=== PATIENT | male | born 1930 | race Caucasian/White ===

== ENCOUNTER → 2017-09-25 | Outpatient (CLI) | payer OTHER ==
[~2017-09-25] MED LIST: AMARYL4 MG PO; CELLCEPT 250 M250 MG PO; CELLCEPT500 MG PO; DOXAZOSIN MESYLA2 MG PO; LEVEMIR SUBQ; LIDODERM1 EACH TRANSDERM; LISINOPRIL5 MG PO; MINIPRESS2 MG PO; NORCO 5-325 TA1 EACH PO; NOVOLIN N100 UNIT/1 SUBQ; PRAVACHOL40 MG PO; SIMVASTATIN
== END ==
LOC: M.ULTRA 10:00
DX: I73.89 Other specified peripheral vascular diseases (principal); L97.528 Non-pressure chronic ulcer of other part of left foot with other specified severity; I77.1 Stricture of artery

== ENCOUNTER → 2017-09-25 | Outpatient (CLI) | payer OTHER | LOC: M.WC 02:12 | DX: E11.622 Type 2 diabetes mellitus with other skin ulcer (principal); I70.245 Atherosclerosis of native arteries of left leg with ulceration of other part of foot; L97.521 Non-pressure chronic ulcer of other part of left foot limited to breakdown of skin; E11.621 Type 2 diabetes mellitus with foot ulcer; L97.821 Non-pressure chronic ulcer of other part of left lower leg limited to breakdown of skin; E11.65 Type 2 diabetes mellitus with hyperglycemia; I10 Essential (primary) hypertension; E78.2 Mixed hyperlipidemia; M19.90 Unspecified osteoarthritis, unspecified site; F03.90 Unspecified dementia, unspecified severity, without behavioral disturbance, psychotic disturbance, mood disturbance, and anxiety; Z87.891 Personal history of nicotine dependence; Z98.42 Cataract extraction status, left eye; Z98.41 Cataract extraction status, right eye; Z96.641 Presence of right artificial hip joint ==

== ENCOUNTER → 2017-10-03 | Outpatient (CLI) | payer OTHER | LOC: M.WC 11:00 | DX: E11.621 Type 2 diabetes mellitus with foot ulcer (principal); I70.245 Atherosclerosis of native arteries of left leg with ulceration of other part of foot; L97.521 Non-pressure chronic ulcer of other part of left foot limited to breakdown of skin; E11.622 Type 2 diabetes mellitus with other skin ulcer; L97.821 Non-pressure chronic ulcer of other part of left lower leg limited to breakdown of skin; E11.65 Type 2 diabetes mellitus with hyperglycemia; I10 Essential (primary) hypertension; E78.2 Mixed hyperlipidemia; M19.90 Unspecified osteoarthritis, unspecified site; F03.90 Unspecified dementia, unspecified severity, without behavioral disturbance, psychotic disturbance, mood disturbance, and anxiety; Z87.891 Personal history of nicotine dependence; Z98.42 Cataract extraction status, left eye; Z98.41 Cataract extraction status, right eye; Z96.641 Presence of right artificial hip joint ==

== ENCOUNTER → 2017-10-15 | Outpatient (CLI) | payer OTHER | LOC: M.WC 01:16 | DX: E11.622 Type 2 diabetes mellitus with other skin ulcer (principal); L97.821 Non-pressure chronic ulcer of other part of left lower leg limited to breakdown of skin; I70.248 Atherosclerosis of native arteries of left leg with ulceration of other part of lower leg; E11.621 Type 2 diabetes mellitus with foot ulcer; L97.521 Non-pressure chronic ulcer of other part of left foot limited to breakdown of skin; E11.65 Type 2 diabetes mellitus with hyperglycemia; I10 Essential (primary) hypertension; E78.2 Mixed hyperlipidemia; M19.90 Unspecified osteoarthritis, unspecified site; F03.90 Unspecified dementia, unspecified severity, without behavioral disturbance, psychotic disturbance, mood disturbance, and anxiety; Z87.891 Personal history of nicotine dependence; Z96.641 Presence of right artificial hip joint ==

== ENCOUNTER → 2017-11-05 | Outpatient (CLI) | payer OTHER | LOC: M.WC 01:40 | DX: E11.621 Type 2 diabetes mellitus with foot ulcer (principal); L97.521 Non-pressure chronic ulcer of other part of left foot limited to breakdown of skin; L97.821 Non-pressure chronic ulcer of other part of left lower leg limited to breakdown of skin; E11.622 Type 2 diabetes mellitus with other skin ulcer; I70.245 Atherosclerosis of native arteries of left leg with ulceration of other part of foot; I10 Essential (primary) hypertension; E78.2 Mixed hyperlipidemia; N40.1 Benign prostatic hyperplasia with lower urinary tract symptoms; F03.90 Unspecified dementia, unspecified severity, without behavioral disturbance, psychotic disturbance, mood disturbance, and anxiety; M19.90 Unspecified osteoarthritis, unspecified site; Z87.891 Personal history of nicotine dependence ==

== ENCOUNTER → 2017-11-19 | Outpatient (CLI) | payer OTHER | LOC: M.WC 03:26 | DX: E11.621 Type 2 diabetes mellitus with foot ulcer (principal); E11.622 Type 2 diabetes mellitus with other skin ulcer; I70.245 Atherosclerosis of native arteries of left leg with ulceration of other part of foot; I70.248 Atherosclerosis of native arteries of left leg with ulceration of other part of lower leg; L97.821 Non-pressure chronic ulcer of other part of left lower leg limited to breakdown of skin; L97.521 Non-pressure chronic ulcer of other part of left foot limited to breakdown of skin; I10 Essential (primary) hypertension; E78.2 Mixed hyperlipidemia; M19.90 Unspecified osteoarthritis, unspecified site; F03.90 Unspecified dementia, unspecified severity, without behavioral disturbance, psychotic disturbance, mood disturbance, and anxiety; Z68.24 Body mass index [BMI] 24.0-24.9, adult; Z87.891 Personal history of nicotine dependence; Z90.49 Acquired absence of other specified parts of digestive tract; Z96.641 Presence of right artificial hip joint; Z98.41 Cataract extraction status, right eye; Z98.42 Cataract extraction status, left eye ==

== ENCOUNTER → 2017-11-26 | Outpatient (CLI) | payer OTHER ==
[~2017-11-26] VITALS: Ht 180.3 cm; Wt 77.1 kg
[2017-11-26 11:11] LABS: HEMATOCRIT 46.7 % (42.0-52.0); HEMOGLOBIN 15.5 gm/dL (14.0-18.0); MCH 32.8 pg (26.0-34.0); MCHC 33.1 g/dL (28.0-37.0); MPV 8.8 fl. (7.2-11.1); RBC 4.72 mil/uL (4.50-6.00); RDW-CV 13.2 % (10.5-14.5); WBC 7.8 thou/uL (4.0-11.0)
[2017-11-26 11:18] VITALS: BP 124/56
[2017-11-26 11:19] LABS: CREATININE 1.7 mg/dL (0.6-1.3); POTASSIUM 4.6 mmol/L (3.5-5.1)
[2017-11-26 11:21] LABS: APTT 26.2 Seconds (25.0-31.3)
[2017-11-26 11:24] LABS: ALBUMIN 3.4 g/dL (3.4-5.0); TOTAL BILIRUBIN 0.4 mg/dL (<0.1-1.0); TOTAL PROTEIN 7.7 g/dL (6.4-8.2)
[2017-11-26 16:08] VITALS: BP 118/64
[2017-11-26 16:19] VITALS: BP 131/73
[2017-11-26 16:37] VITALS: BP 129/63
[2017-11-26 17:06] VITALS: BP 125/58
[2017-11-26 18:01] VITALS: BP 133/40
--- NOTE | 2017-12-06 14:18 | OP ---
[facility] [address] [place] [address] OPERATIVE REPORT Name: ENCISORYAN Room: [facility]#: [id number] Admission: 11/26/17 Attend Phys: Levon Wilcox Discharge: Date of : 30 Report #: [id number] THIS REPORT FOR: //name// CC: Ryan Perez DATE OF SERVICE: 11/26/2017 PREOPERATIVE DIAGNOSIS: Peripheral vascular disease with rest pain and left great toe ulcer. POSTOPERATIVE DIAGNOSIS: Peripheral vascular disease with rest pain and left great toe ulcer. SURGEON: Dave Perez DO TEMPER MILL ROLLER: None. PROCEDURES: 1. Ultrasound-guided access, right common femoral artery. 2. CO2 aortogram. 3. Left lower extremity arteriogram with CO2 and contrast, catheter position third order. 4. Atherectomy, left superficial femoral artery. 5. Angioplasty of the left superficial femoral artery with Bard [place] 3 x 150 mm angioplasty balloon. 6. Limited angiogram, right common femoral artery. 7. Angio-Seal closure, right common femoral artery. ESTIMATED BLOOD LOSS: Minimal. SPECIMEN: None. COMPLICATIONS: None. CONDITION: Stable. DISPOSITION: Home. INDICATIONS FOR THE PROCEDURE AND CONSENT: The patient is an 87-year-old male with rest pain of left lower extremity. He has a history of left superficial femoral artery stenting, attempted reopening by a vascular surgeon a couple of years ago without success. The patient developed a toe ulcer on reattempt, was discussed with the patient including retrograde tibial access. Risks and benefits of this were discussed with the patient, infection, bleeding, worsening renal insufficiency. The patient wished to proceed, was consented and [facility] [address] [facility] [place] [address] OPERATIVE REPORT Name: RYAN ENCISO Room: [facility]#: [id number] Admission: 11/26/17 Attend Phys: Levon Wilcox Discharge: Date of : 30 Report #: [id number] scheduled. Preoperative laboratory demonstrated elevated creatinine of 1.7, so CO2 angiography with minimal contrast dye using 20% contrast was planned in the immediate preoperative period. The patient was also administered additional fluid given the possible complexity of the case and need for additional contrast. PROCEDURE IN DETAIL: After timeout was performed, the patient was placed in supine position with sterile prep and drape of the anterior abdomen, bilateral groins, bilateral thighs. Ultrasound was utilized to identify the right common femoral artery, which was fairly heavily diseased with plaque. I accessed above this heavy plaque using Seldinger technique and a 6-Bolivian sheath. Glidewire Advantage and UF catheter were advanced into the infrarenal aorta and a CO2 aortogram was performed. This demonstrated the aorta to be widely patent. The left common iliac artery was mildly stenosed without significant flow limitation. Otherwise, the right common iliac, external, internal and left external and internal iliac arteries appeared widely patent without flow limitation or stenosis. I then advanced the Glidewire Advantage and UF catheter into the left external iliac artery under fluoroscopic guidance and a left lower extremity angiogram with CO2 was then performed. This demonstrated left common femoral artery to be patent. 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 At this junction, although it appeared to be through small collaterals and the patient did not appear to be having any symptoms, I opted not to use any additional CO2 for concern of gas embolism. I then converted to 20% contrast dye and initiated additional fluid management. The left lower extremity angiogram from this position again demonstrated the fistula, widely patent profunda artery with reconstitution below the knee through spiraling collaterals to the anterior tibial vessel. The posterior tibial and peroneal vessels were not well visualized, but did appear to possibly reconstitute distally, but appeared also very small, occluded the dominant vessel was the anterior tibial vessel. Because of the paucity of outflow, I determined at this point that retrograde tibial axis was not appropriate as any damage to the single outflow vessel could lead to an emergent ischemic situation. I did consider at this point stopping the procedure with a plan for fem-tibial bypass and performed additional angled views of the femoral vessel. This did demonstrate the proximal superficial femoral artery to be patent with a top cap and I determined that the fistula was not from this area of the superficial femoral artery, also interrogated the patient regarding symptoms of heart failure and history of congestive heart failure and reviewed this chart. There was no history of this and did not feel strongly that [place] [address] OPERATIVE REPORT Name: RYAN ENCISO Room: [facility]#: [id number] Admission: 11/26/17 Attend Phys: Levon Wilcox Discharge: Date of : 30 Report #: [id number] treatment at this point. I then decided to proceed with attempt at reopening of his SFA occlusion. I systemically heparinized the patient with 6000 units of heparin with intention to treat and obtain an up and over 6-Bolivian sheath. Glidewire Advantage and Seeker catheter were placed into the proximal superficial artery. This was exchanged for 0.018 Glidewire Advantage and the Usher catheter. The Usher catheter was positioned at the top cap and the Crosser atherectomy device obtained. This was then activated and advanced through the top cap and into the superficial femoral artery without difficulty. This passed easily through the SFA and proximal SFA stent and down into the popliteal vessel. I then advanced the Usher catheter distally as well; however, I did not wish to pass distally and at the junction of 2 adjoining stents, did not appear to want to pass. I then exchanged for 0.018 Glidewire Advantage and Seeker catheter. I was unable to pass the Seeker catheter either and then obtained a 3 mm angioplasty balloon to try and open the space between the 2 stents. I was able to pass the balloon approximately 1-2 cm beyond the junction and angioplasty and I reobtained the Seeker catheter, was still unable to pass the Seeker catheter distally. I exchanged for the 0.035 Glidewire Advantage and attempted to take a different path even retracting all the way above the stents and even back to the top cap and attempting a different subintimal plane. None of this proved useful and was really not able to get a Seeker catheter beyond the junction of the 2 superficial femoral artery and popliteal artery stents. I suspected that my wire was passing from the true luminal side of the superficial femoral, proximal stent and then was passing between the stents to extra stent pathway. One image demonstrated a possible distal entry into the femoral vein. When the catheter was retracted and angiography performed, this did not demonstrate any connection or extravasation of contrast. Ultimately, after multiple attempts to reposition into a different plane to get distally into the distal popliteal artery, I was really not able to achieve this. At this point, determined that his only option was a fem-tibial bypass or nontreatment at this time. I did discuss this with the awake patient to some degree, although he was under sedation. He was quite alert and awake and wanted to consider bypass. I then retracted the sheath into the right external iliac artery and angiogram was performed. This demonstrated appropriate vessel for Angio-Seal closure and 6-Bolivian Angio-Seal was selected and deployed in standard fashion. The patient tolerated the procedure well. All lap, needle and instrument counts were correct. Pressure was held for hemostasis for additional 2 minutes. The patient was transferred to recovery in stable condition. <ELECTRONICALLY SIGNED> By: Dave Perez DO 12/06/17 1418 1841 1916Dave [email or web address] DO /nt
== END | disposition home or self-care (01) ==
LOC: M.INT 11-11 13:30
PROVIDERS: Surgery
DX: I70.222 Atherosclerosis of native arteries of extremities with rest pain, left leg (principal); L97.529 Non-pressure chronic ulcer of other part of left foot with unspecified severity; I10 Essential (primary) hypertension; E11.9 Type 2 diabetes mellitus without complications; Z87.891 Personal history of nicotine dependence; Z88.0 Allergy status to penicillin; Z88.8 Allergy status to other drugs, medicaments and biological substances; Z79.4 Long term (current) use of insulin; Z79.899 Other long term (current) drug therapy; Z96.641 Presence of right artificial hip joint; Z90.49 Acquired absence of other specified parts of digestive tract; Z79.01 Long term (current) use of anticoagulants

== ENCOUNTER → 2017-12-10 | Outpatient (CLI) | payer OTHER | LOC: M.WC 12-03 01:54 | DX: E11.621 Type 2 diabetes mellitus with foot ulcer (principal); L97.521 Non-pressure chronic ulcer of other part of left foot limited to breakdown of skin; I70.245 Atherosclerosis of native arteries of left leg with ulceration of other part of foot; I10 Essential (primary) hypertension; E78.2 Mixed hyperlipidemia; N40.1 Benign prostatic hyperplasia with lower urinary tract symptoms; F03.90 Unspecified dementia, unspecified severity, without behavioral disturbance, psychotic disturbance, mood disturbance, and anxiety; Z68.24 Body mass index [BMI] 24.0-24.9, adult; M19.90 Unspecified osteoarthritis, unspecified site; Z87.891 Personal history of nicotine dependence ==

== ENCOUNTER → 2017-12-24 | Outpatient (CLI) | payer OTHER | LOC: M.WC 00:54 | DX: E11.621 Type 2 diabetes mellitus with foot ulcer (principal); L97.521 Non-pressure chronic ulcer of other part of left foot limited to breakdown of skin; I70.245 Atherosclerosis of native arteries of left leg with ulceration of other part of foot; E11.622 Type 2 diabetes mellitus with other skin ulcer; L97.821 Non-pressure chronic ulcer of other part of left lower leg limited to breakdown of skin; E78.2 Mixed hyperlipidemia; I10 Essential (primary) hypertension; N40.1 Benign prostatic hyperplasia with lower urinary tract symptoms; F03.90 Unspecified dementia, unspecified severity, without behavioral disturbance, psychotic disturbance, mood disturbance, and anxiety; Z68.24 Body mass index [BMI] 24.0-24.9, adult; M19.90 Unspecified osteoarthritis, unspecified site; Z87.891 Personal history of nicotine dependence ==

== ENCOUNTER → 2017-12-31 | Outpatient (CLI) | payer OTHER | LOC: M.WC 02:48 | DX: E11.621 Type 2 diabetes mellitus with foot ulcer (principal); L97.521 Non-pressure chronic ulcer of other part of left foot limited to breakdown of skin; I70.245 Atherosclerosis of native arteries of left leg with ulceration of other part of foot; I10 Essential (primary) hypertension; E78.2 Mixed hyperlipidemia; N40.1 Benign prostatic hyperplasia with lower urinary tract symptoms; F03.90 Unspecified dementia, unspecified severity, without behavioral disturbance, psychotic disturbance, mood disturbance, and anxiety; M19.90 Unspecified osteoarthritis, unspecified site; Z68.24 Body mass index [BMI] 24.0-24.9, adult; Z87.891 Personal history of nicotine dependence ==

== ENCOUNTER → 2018-01-14 | Outpatient (CLI) | payer OTHER | LOC: M.WC 04:29 | DX: E11.621 Type 2 diabetes mellitus with foot ulcer (principal); I70.245 Atherosclerosis of native arteries of left leg with ulceration of other part of foot; L97.521 Non-pressure chronic ulcer of other part of left foot limited to breakdown of skin; I10 Essential (primary) hypertension; E78.2 Mixed hyperlipidemia; N40.1 Benign prostatic hyperplasia with lower urinary tract symptoms; M19.90 Unspecified osteoarthritis, unspecified site; F03.90 Unspecified dementia, unspecified severity, without behavioral disturbance, psychotic disturbance, mood disturbance, and anxiety; Z87.891 Personal history of nicotine dependence; Z96.641 Presence of right artificial hip joint ==

== ENCOUNTER → 2018-01-27 | Outpatient (CLI) | payer OTHER | LOC: M.WC 08:40 | DX: I70.245 Atherosclerosis of native arteries of left leg with ulceration of other part of foot (principal); L97.521 Non-pressure chronic ulcer of other part of left foot limited to breakdown of skin; E11.65 Type 2 diabetes mellitus with hyperglycemia; I10 Essential (primary) hypertension; E78.2 Mixed hyperlipidemia; N40.1 Benign prostatic hyperplasia with lower urinary tract symptoms; F03.90 Unspecified dementia, unspecified severity, without behavioral disturbance, psychotic disturbance, mood disturbance, and anxiety; M19.90 Unspecified osteoarthritis, unspecified site; Z87.891 Personal history of nicotine dependence; Z68.24 Body mass index [BMI] 24.0-24.9, adult; Z96.641 Presence of right artificial hip joint; Z98.42 Cataract extraction status, left eye; Z98.41 Cataract extraction status, right eye ==

== ENCOUNTER 2018-05-19 10:14 | Emergency (ER) | payer OTHER ==
[~2018-05-19] VITALS: Ht 180.3 cm; Wt 78.7 kg
[~2018-05-19 10:14] MED LIST changes: -CELLCEPT 250 M250 MG PO; -LIDODERM1 EACH TRANSDERM; -MINIPRESS2 MG PO
[2018-05-19 10:42] LABS: ABSOLUTE BASOPHILS 0.1 thou/uL (0.0-0.2); ABSOLUTE EOSINOPHILS 0.1 thou/uL (0.0-0.7); ABSOLUTE LYMPHOCYTES 1.3 thou/uL (0.8-5.3); ABSOLUTE MONOCYTES 0.7 thou/uL (0.0-1.2); ABSOLUTE NEUTROPHILS 5.3 thou/uL (1.6-8.1); BASOPHILS 1.3 %; EOSINOPHILS 1.5 %; HEMATOCRIT 42.5 % (42.0-52.0); LYMPHOCYTES 17.8 %; MCH 31.9 pg (26.0-34.0); MCV 96.6 fL (80.0-100.0); MONOCYTES 8.9 %; MPV 9.1 fl. (7.2-11.1); NUCLEATED RBCS 0 /100WBC; PLATELET COUNT* 210 thou/uL (150-400); POLYS 70.5 %; RDW-CV 13.7 % (10.5-14.5); WBC 7.6 thou/uL (4.0-11.0)
[2018-05-19 10:58] LABS: ANION GAP 7 mmol/L (7-16); BUN 29 mg/dL (7-18); CALCIUM 8.2 mg/dL (8.5-10.1); CHLORIDE 103 mmol/L (98-107); CO2 25 mmol/L (21-32); CREATININE 1.8 mg/dL (0.6-1.3); GLUCOSE 206 mg/dL (70-99); POTASSIUM 4.2 mmol/L (3.5-5.1); SODIUM 135 mmol/L (136-145)
[2018-05-19 11:06] LABS: ALBUMIN 2.8 g/dL (3.4-5.0); ALKALINE PHOSPHATASE 71 U/L (46-116); SGOT 16 U/L (15-37); SGPT 11 U/L (30-65); TOTAL BILIRUBIN 0.4 mg/dL (<0.1-1.0); TOTAL PROTEIN 6.3 g/dL (6.4-8.2); TROPONIN-I LEVEL <0.06 ng/mL (<0.06)
[2018-05-19] MEDS ORDERED: CELLCEPT 250 M250 MG PO (11:09)
[2018-05-19 13:25] VITALS: BP 112/52
--- NOTE | 2018-05-19 14:54 | EKG ---
[place] [address] ELECTROCARDIOGRAM REPORT Name: ZARIARYAN Henderson Room: [facility]#: [id number] Admission: 05/19/18 Attend Phys: Discharge: 05/19/18 Date of : 30 Report #: [id number] THIS REPORT FOR: //name// [facility] ED Test Date: 2018-05-19 Test Time: 10:50:20 Pat Name: RYAN HODGES Department: Room: Gender: Cement Truck Driver: Jamee MEDEROS : 1930 Requested By: Jennifer Hodges Order Number: [id number] MD: Compa Ma Measurements Intervals [place] Rate: 76 P: 35 MS: 178 QRS: 22 QRSD: 88 T: 10 QT: 372 QTc: 419 Interpretive Statements Sinus rhythm Borderline low voltage, extremity leads Baseline wander in lead(s) I,aVL Compared to ECG 07/24/2009 14:20:43 No significant changes Electronically Signed On 05-19-2018 14:54:07 CDT by Compa Ma [email or web address] <ELECTRONICALLY SIGNED> By: Compa Ma MD, [facility] 05/19/18 1454 1050 1050 Copma Ma MD, [facility] /EPI
== END 2018-05-19 13:25 | disposition home or self-care (01) ==
LOC: M.ERS 10:14
DX: R55 Syncope and collapse (principal); S51.811A Laceration without foreign body of right forearm, initial encounter; I10 Essential (primary) hypertension; E11.9 Type 2 diabetes mellitus without complications; Z79.4 Long term (current) use of insulin; X58.XXXA Exposure to other specified factors, initial encounter; Y93.89 Activity, other specified; Y92.89 Other specified places as the place of occurrence of the external cause; Y99.8 Other external cause status

== ENCOUNTER 2018-06-09 09:32 | Inpatient (IN) | payer OTHER ==
[~2018-06-09] VITALS: Ht 177.8 cm; Wt 71.7 kg
--- NOTE | 2018-06-09 09:19 | NUR ---
SW met with pt, pt , pt son and pt dtr on day of admit 06/09 to complete initial assessment and follow up on consult for possible detention placement. Pt family expressed wanting to be able to take pt home with more in home assistance. SW provided referrals and resource lists and explained differences between in home assistance and services and discussed LTC and financial particulars involving the dc placment/planning options. Pt and pt family want to review information and then make decisions. SW to continue to follow to assist with safe dc planning.
[~2018-06-09 09:32] MED LIST changes: +CELLCEPT 250 M250 MG PO
[2018-06-09 09:41] VITALS: BP 143/77
[2018-06-09 10:12] LABS: ABSOLUTE BASOPHILS 0.1 thou/uL (0.0-0.2); ABSOLUTE EOSINOPHILS 0.3 thou/uL (0.0-0.7); ABSOLUTE LYMPHOCYTES 0.8 thou/uL (0.8-5.3); ABSOLUTE MONOCYTES 0.8 thou/uL (0.0-1.2); ABSOLUTE NEUTROPHILS 6.1 thou/uL (1.6-8.1); BASOPHILS 0.8 %; CALCIUM 8.2 mg/dL (8.5-10.1); CREATININE 1.4 mg/dL (0.6-1.3); EOSINOPHILS 3.3 %; HEMATOCRIT 47.3 % (42.0-52.0); HEMOGLOBIN 15.2 gm/dL (14.0-18.0); MCH 31.7 pg (26.0-34.0); MCHC 32.2 g/dL (28.0-37.0); MCV 98.4 fL (80.0-100.0); MONOCYTES 10.5 %; MPV 8.9 fl. (7.2-11.1); NUCLEATED RBCS 0 /100WBC; PLATELET COUNT* 209 thou/uL (150-400); POLYS 75.4 %; POTASSIUM 4.3 mmol/L (3.5-5.1); RDW-CV 13.2 % (10.5-14.5)
[2018-06-09 10:24] LABS: ALBUMIN 2.9 g/dL (3.4-5.0); TOTAL BILIRUBIN 0.7 mg/dL (<0.1-1.0); TOTAL PROTEIN 6.8 g/dL (6.4-8.2)
[2018-06-09 13:59] VITALS: BP 133/61
[2018-06-09 14:25] VITALS: BP 170/74
--- NOTE | 2018-06-09 17:14 | EKG ---
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1930 Requested By: Isaiah Patino Order Number: [id number] MD: Bruno Villela Measurements Intervals [place] Rate: 68 P: 47 [place]: 156 QRS: 23 QRSD: 90 T: 14 QT: 402 QTc: 428 Interpretive Statements Sinus rhythm Borderline low voltage, extremity leads Compared to ECG 05/19/2018 10:50:20 No significant changes Electronically Signed On 06-09-2018 17:14:09 CDT by Bruno Villela [email or web address] <ELECTRONICALLY SIGNED> By: Bruno Villela MD, [facility] 06/09/18 1714 1228 1228 Bruno Villela MD, [facility] /EPI
--- NOTE | 2018-06-09 18:04 | NUR ---
PATIENT ADM FROM ER, REPORT FROM ROBERTA. ARRIVED ON UNIT AT 1410. PATIENT A&OX4, ROOM AIR, IV RIGHT AC SALINE LOCK. BEDREST, PATIENT GETS AROUND AT HOME WITH ELECTRIC WHEELCHAIR. HOWEREVER, PATIENT WAS USING WALKER LAST NIGHT AND FELL ONTO RIGHT HIP AND KNEE. C/O PIAN, RELIEF WITH MEDICATION. ADM ASSESSMENT COMPLETED AND DOCUMENTED. BRUISING NOTED, TEAR TO UNDERSIDE OF LEFT PINKY TOE, CLEANDED WITH WOUND CLEANSER AND PICTURE TAKEN. PATIENT STATES HE DOES NOT LIKE FEET COVERED. FAMILY SPOKE WITH CASE MANAGEMENT THIS AFTERNOON IN REGARDS TO SKILLED/LTC/HH AT DISCHARGE. NO OTHER CONCERNS AT THIS TIME. APPROPRIATE AND COOPORATIVE WITH CARE.
[2018-06-10 00:23] VITALS: BP 157/64
--- NOTE | 2018-06-10 04:37 | NUR ---
PATIENT SLEPT WELL DURING THIS SHIFT. PT ABLE TO REPOSITION HIMSELF IN BED. PT CONTINENT OF BOWEL/BLADDER. PT USES CALL LIGHT APPROPRIATELY FOR ASSISTANCE. PT WITH DIMINISHED CLEAR LUNG SOUNDS. PT WITH SALINE LOCK IN RT AC; PATENT. PT DENIES NEEDS AT THIS TIME. FREQUENTLY USED ITEMS AND CALL LIGHT WITHIN REACH. SIDERAILS UPX4 PER PT REQUEST AND BED ALARM ON. WILL CONTINUE TO MONITOR.
[2018-06-10 07:40] VITALS: BP 154/79
[2018-06-10 16:16] VITALS: BP 95/49
[2018-06-10 17:38] LABS: HEMATOCRIT 44.5 % (42.0-52.0); HEMOGLOBIN 14.5 gm/dL (14.0-18.0); MCH 31.8 pg (26.0-34.0); MCHC 32.5 g/dL (28.0-37.0); MCV 97.7 fL (80.0-100.0); MPV 9.1 fl. (7.2-11.1); RBC 4.55 mil/uL (4.50-6.00); RDW-CV 13.7 % (10.5-14.5); WBC 8.8 thou/uL (4.0-11.0)
[2018-06-10 17:45] LABS: CALCIUM 8.1 mg/dL (8.5-10.1); CREATININE 1.9 mg/dL (0.6-1.3); POTASSIUM 4.2 mmol/L (3.5-5.1)
--- NOTE | 2018-06-10 18:31 | NUR ---
PATIENT RESTIGN IN BED. AT BEDSIDE. PATIENT HAS COMPLAINTS OF PAIN TO RIGHT KNEE. TYLENOL GIVEN WITH SOME RELIEF. PATIENT HAS FAIR APPETITE. PATIENT HAD COMPLAINTS OF LIGHTHEADEDNESS THIS EVENING, DR SUAZO NOTIFIED AND ORDERS RECEIVED. PATIENT IS UP MAX ASSIST OF 2. PATIENT DENIES ANY NEEDS AT THIS TIME. CALL LIGHT WITHIN REACH. WILL CONTINUE TO MONITOR.
[2018-06-10 20:30] VITALS: BP 102/45
[2018-06-11 00:28] VITALS: BP 107/52
--- NOTE | 2018-06-11 05:29 | NUR ---
PATIENT SLEPT MOST OF THE NIGHT. IV REMAINS SALINE LOCKED. PATIENT HAD NO COMPLAINTS OF PAIN. WILL CONTINUE TO MONITOR.
--- NOTE | 2018-06-11 07:06 | NUR ---
I have reviewed the documentation by HAVEN PATEL from 06/10/18 and I concur with it. DARLENE ENCISO
[2018-06-11 07:45] VITALS: BP 121/61
[2018-06-11 10:13] VITALS: BP 121/61
[2018-06-11 11:11] VITALS: BP 121/61
[2018-06-11] MEDS ORDERED: LIDODERM1 EACH TRANSDERM (11:19)
--- NOTE | 2018-06-11 11:23 | NUR ---
SPOKE TO THE PATIENT TO DISCUSS DISCHARGE PLANNING NEEDS AND HH AT D/C. PATIENT AND SPOUSE CHOSE [facility]. SPOKE TO JENYN WITH [facility] TO INFORM OF THE REFERRAL FOR HH, AND FAXED PATIENT'S FACESHEET, H&P, AND D/C ORDERS. [facility] TO CONTACT THE PATIENT TO SETUP VISIT. CM WILL REMAIN AVAILABLE TO ASSIST AND FOLLOW NEEDED.
[2018-06-11 11:26] VITALS: BP 121/61
--- NOTE | 2018-06-11 13:00 | NUR ---
PATIENT DISCHARGED TO HOME WITH HOME HEALTH. DISCHARGE PAPERS REVIEWED AND SIGNED. PRESCRIPTION AND INFORMATION SHEETS GIVEN. IV REMOVED. PATIENT ASSISTED WITH GETTING DRESSED. PACKED BELONGINGS. PATIENT DENIES ANY FURTHER NEEDS. PATIENT TAKEN BY WHEELCHAIR TO EXIT. LEFT WITH .
== END 2018-06-11 13:00 | disposition home health service (06) | DRG 604 ==
LOC: M.ERS 09:32 → M.TBA-ER 12:12 → M.3W 12:12
PROVIDERS: Emergency Medicine; ADMIT Internal Medicine
DX: S80.01XA Contusion of right knee, initial encounter (principal); E43 Unspecified severe protein-calorie malnutrition; I12.9 Hypertensive chronic kidney disease with stage 1 through stage 4 chronic kidney disease, or unspecified chronic kidney disease; N18.3 Chronic kidney disease, stage 3 (moderate); E11.22 Type 2 diabetes mellitus with diabetic chronic kidney disease; E11.42 Type 2 diabetes mellitus with diabetic polyneuropathy; W18.30XA Fall on same level, unspecified, initial encounter; M25.551 Pain in right hip; Z96.641 Presence of right artificial hip joint; F17.220 Nicotine dependence, chewing tobacco, uncomplicated; Y93.89 Activity, other specified; Y92.89 Other specified places as the place of occurrence of the external cause; Y99.8 Other external cause status; Z90.49 Acquired absence of other specified parts of digestive tract; Z95.820 Peripheral vascular angioplasty status with implants and grafts; Z79.4 Long term (current) use of insulin; Z79.899 Other long term (current) drug therapy; Z88.0 Allergy status to penicillin; Z88.1 Allergy status to other antibiotic agents

== ENCOUNTER → 2018-06-19 | Outpatient (CLI) | payer OTHER ==
[~2018-06-19] MED LIST changes: +LIDODERM1 EACH TRANSDERM; +MINIPRESS2 MG PO
== END ==
LOC: M.MRI 08:22
DX: M19.072 Primary osteoarthritis, left ankle and foot (principal); M20.12 Hallux valgus (acquired), left foot; L03.032 Cellulitis of left toe; R60.0 Localized edema; I10 Essential (primary) hypertension; E11.9 Type 2 diabetes mellitus without complications; Z79.4 Long term (current) use of insulin; Z90.49 Acquired absence of other specified parts of digestive tract; Z87.891 Personal history of nicotine dependence

== ENCOUNTER 2018-07-21 13:30 | Inpatient (IN) | payer OTHER ==
[~2018-07-21] VITALS: Ht 175.3 cm; Wt 72.1 kg
[~2018-07-21 13:30] MED LIST changes: -MINIPRESS2 MG PO
[2018-07-21 13:45] VITALS: BP 151/80
[2018-07-21 14:48] LABS: ABSOLUTE BASOPHILS 0.1 thou/uL (0.0-0.2); ABSOLUTE EOSINOPHILS 0.3 thou/uL (0.0-0.7); ABSOLUTE MONOCYTES 0.7 thou/uL (0.0-1.2); ABSOLUTE NEUTROPHILS 4.8 thou/uL (1.6-8.1); BASOPHILS 0.9 %; EOSINOPHILS 3.8 %; HEMATOCRIT 46.1 % (42.0-52.0); MCH 31.9 pg (26.0-34.0); MCHC 32.6 g/dL (28.0-37.0); MCV 97.9 fL (80.0-100.0); MPV 8.3 fl. (7.2-11.1); NUCLEATED RBCS 0 /100WBC; PLATELET COUNT* 249 thou/uL (150-400); POLYS 70.3 %; RBC 4.71 mil/uL (4.50-6.00); RDW-CV 13.7 % (10.5-14.5); WBC 6.8 thou/uL (4.0-11.0)
[2018-07-21 14:53] LABS: CALCIUM 8.9 mg/dL (8.5-10.1); CREATININE 1.9 mg/dL (0.6-1.3)
[2018-07-21 14:54] LABS: POTASSIUM 6.1 mmol/L (3.5-5.1)
[2018-07-21 14:59] LABS: ALBUMIN 3.2 g/dL (3.4-5.0); TOTAL BILIRUBIN 0.2 mg/dL (<0.1-1.0); TOTAL PROTEIN 7.5 g/dL (6.4-8.2)
[2018-07-21 19:53] VITALS: BP 129/57
[2018-07-21 20:00] VITALS: BP 151/57
[2018-07-22 01:20] VITALS: BP 120/46
[2018-07-22 04:00] VITALS: BP 121/49
--- NOTE | 2018-07-22 06:09 | NUR ---
PATIENT RESTED IN BED, NO ACUTE CHANGES. PATIENT DID NOT COMPLAIN OF PAIN. PATIENT DID NOT SHOW SIGNS OF DISTRESS. FALL PRECAUTIONS IN PLACE, CALL LIGHT WITH IN REACH, HOURLY ROUNDING OBSERVED, BED ALARM ON.
[2018-07-22 08:00] VITALS: BP 163/84
[2018-07-22 12:00] VITALS: BP 142/48
--- NOTE | 2018-07-22 14:39 | NUR ---
Pt is A&O. Resides at home with his . Pt is current with [facility] . asked about rehab, Pt adament that he will dc home with . CM asked nurse to obtain therapy orders. Pt has a walker and scooter at home. No hx of SNF. completes ADLs and assists with most IADLS. Following for disposition.
--- NOTE | 2018-07-22 15:02 | NUR ---
WOUND CARE NOTE: CONSULT RECEIVED FOR LEFT TOE WOUND. PATIENT PRESENTS WITH AN INTACT STABLE ESCHAR. NO S/S OF INFECTION. PATIENT ALSO HAS ABRASIONS TO THE DORSAL ASPECT OF HIS LEFT FOOT, DRY INTACT. ALSO HAS CALLUS TO THE LEFT 5TH METATARSAL HEAD, PLANTAR SURFACE. THIS WAS INTACT. RECOMMEND PODUS BOOTS TO BILATERAL FEET BETADINE TO LESIONS ON LEFT FOOT WILL SIGN OFF AT THIS TIME, PLEASE RECONSULT IF NEEDED.
[2018-07-22 17:04] VITALS: BP 146/52
--- NOTE | 2018-07-22 18:31 | NUR ---
VSS, ASSUMED CARE THIS AM, ASSESSMENT PERFORMED AND CHARTED, FALL PRECAUTIONS IN PLACE AND CALL LIGHT IN REACH, PT IS SB/SR ON THE MONITOR ON RA UP WITH ONE TO BSC, DENIES ANY PAIN AT THIS TIME, PT IS ALERT BUT SEEMS TO BE FORGETFUL AND IS EASLY CONFUSED, HIS GOAL IS SAFETY, HE IS REFUSIND TO WEAR HIS POODUS BOOTS, WILL FOLLOW WITH PLAN OF CARE, ID AND VASCULAR HAVE SINGED OFF, NO OTHER PLAN OF CARE AT THIS TIME,
[2018-07-22 19:30] VITALS: BP 113/49
[2018-07-23] VITALS (7 sets, daily range): BP systolic 80–123; BP diastolic 29–49
--- NOTE | 2018-07-23 00:12 | NUR ---
VITALS WNL. SEE MAR. SEE CHARTING. FALL PRECAUTIONS IN PLACE. HOURLY ROUNDING FOR SAFETY.
--- NOTE | 2018-07-23 06:04 | NUR ---
PT IS ABLE TO COMMUNICATE HIS NEEDS TO STAFF EFECTIVELY. HE HAS DENIED THE NEED FORPAIN MEDICATION UP TO THIS TIME. BP SOFT THIS MORNING; PT ASYMPTOMATIC AND RECEIVING IV FLUIDS, WILL CONTINUE TO MONITOR. POSSIBLE DISCHARGE TO A FACILITY SOON.
[2018-07-23] MEDS ORDERED: MINIPRESS2 MG PO (12:36)
--- NOTE | 2018-07-23 12:44 | NUR ---
ASSESSMENT COMPLETED REFER TO COMPUTER CHARTING. PATIENT RESTING IN BED REPORTING NO PAIN, NAUSEA OR SHORTNESS OF BREATH. BED IN LOW AND LOCKED POSITION. CALL LIGHT WITHIN REACH. IV AND HEALTH AID DISCONTINUED AND REMOVED. ALL PERSONAL BELONGINGS GATHERED AND SENT WITH PATIENT. DISCHARGE INSTRUCTIONS GIVEN TO PATIENT AND FAMILY. VERBALIZING UNDERSTANDING AND REPORTING NO QUESTIONS AT THIS TIME. PATIENT AWAITING TRANSPORTATION AT THIS TIME. WILL CONTINUE TO MONITOR.
--- NOTE | 2018-07-23 12:55 | CON ---
[address] [address] CONSULTATION Name: RYAN ENCISO Room: [address] IN M.R.#: [id number] Admission: 07/21/18 Attend Phys: Mary Trimble Discharge: Date of : 30 Report #: [id number] THIS REPORT FOR: //name// CC: Ryan Tinajero Lidya Arenas DATE OF SERVICE: 07/22/2018 INFECTIOUS DISEASE CONSULTATION ATTENDING PHYSICIAN: Dr. Joseph. REASON FOR EVALUATION: Distal left lower extremity multiple ulcers, likely multifactorial, question of a complicating skin and soft tissue infection. HISTORY OF PRESENT ILLNESS: Chart reviewed, the patient examined. 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 He was felt to have at least a component of ischemia. He was admitted through the Emergency Room with increasing pain associated with the toes for roughly 2 weeks and had been treated with systemic antibiotics in an attempt to address possible infection. Evaluation was undertaken. He was confirmed to have severe vasculopathy based on arterial Dopplers. He notes he has not had fevers. Appetite has generally been pretty good. Weight has been stable. No significant pulmonary or gastrointestinal-related complaints. Blood cultures were collected and they are sterile thus far less than a day. The decision was made not to start antibiotics. ALLERGIES: LISTED TO PENICILLINS. CURRENT MEDICATIONS: Include glimepiride, insulin, terazosin, atorvastatin and lisinopril. PAST MEDICAL HISTORY: As noted above, diabetes mellitus type 2 complicated by peripheral vascular disease, history of hypertension, previous right hip replacement, appendectomy and cholecystectomy. SOCIAL HISTORY: Former smoker. No ethanol. FAMILY HISTORY: Noncontributory. REVIEW OF SYSTEMS: As above. PHYSICAL EXAMINATION: GENERAL: He is pleasant, alert, cooperative, appears quite frail, [place] [address] CONSULTATION Name: RYAN ENCISO Room: [address] IN [facility]#: [id number] Admission: 07/21/18 Attend Phys: Mary Trimble Discharge: Date of : 30 Report #: [id number] undernourished, in mild distress. He is not encephalopathic. VITAL SIGNS: Temperature 98.4, pulse 57, respirations 16 and blood pressure 142/48. SKIN: Warm, dry. HEENT: Otherwise, unremarkable. NECK: Supple. LUNGS: Diminished breath sounds. HEART: Regular. Borderline bradycardic. I do not appreciate a murmur. ABDOMEN: Soft. EXTREMITIES: Distal lower extremities have changes consistent with chronic ischemia, although they are fairly warm at this point. He has got multiple areas of eschar and underlying ulcer and they are quite tender to palpation. There is not a great degree of inflammation noted superficially. GENITOURINARY: Deferred. RECTAL: Deferred. LABORATORY DATA: Lactic acid 1.4. Electrolytes: Sodium 132, potassium of 6.1, chloride 102, bicarbonate is 27, anion gap of 3, BUN and creatinine 31 and 1.9 and glucose of 154. LFTs unremarkable. Albumin of 3.2. Total protein of 7.5. CBC: White count of 6.8, H and H 15.0 and 46.1 and platelets of 249,000. ASSESSMENT AND PLAN: Left distal lower extremity multiple superficial ulcers, likely primarily due to ischemia. We will see if it will take a significant amount of inflammation. No evidence of gangrene at this point. I think I had favor watchful waiting, it is early, if it became more inflamed including redness and swelling. I think the pain is part and parcel due to the ischemia as well and it sounds that there are no further plans for vascular intervention. We will monitor expectantly. <ELECTRONICALLY SIGNED> By: Lucian Zapata MD 07/23/18 1255 1502 [id number] Zapata MD /nt
== END 2018-07-23 12:59 | disposition home or self-care (01) | DRG 300 ==
LOC: M.ERS 13:30 → M.TBA-ER 16:03 → M.2W 16:03
PROVIDERS: Physician Assistant; ADMIT Internal Medicine
DX: E11.51 Type 2 diabetes mellitus with diabetic peripheral angiopathy without gangrene (principal); L97.929 Non-pressure chronic ulcer of unspecified part of left lower leg with unspecified severity; E87.1 Hypo-osmolality and hyponatremia; Z79.899 Other long term (current) drug therapy; E87.5 Hyperkalemia; Z96.641 Presence of right artificial hip joint; F17.220 Nicotine dependence, chewing tobacco, uncomplicated; I12.9 Hypertensive chronic kidney disease with stage 1 through stage 4 chronic kidney disease, or unspecified chronic kidney disease; E11.22 Type 2 diabetes mellitus with diabetic chronic kidney disease; N18.3 Chronic kidney disease, stage 3 (moderate); Z88.0 Allergy status to penicillin; Z90.49 Acquired absence of other specified parts of digestive tract; Z88.1 Allergy status to other antibiotic agents

== ENCOUNTER 2019-08-24 20:24 | Inpatient (IN) | payer OTHER ==
[~2019-08-24] VITALS: Ht 177.8 cm; Wt 79.8 kg
[~2019-08-24 20:24] MED LIST changes: +MINIPRESS2 MG PO
[2019-08-24 20:50] VITALS: BP 68/38
[2019-08-24] MEDS ORDERED: NOVOLIN N100 UNIT/1 (21:02)
[2019-08-24] MEDS ORDERED: DOXYCYCLINE PO (21:03)
[2019-08-24 21:25] LABS: BE -2.2 mmol/L (-2 to +3); pH 7.354 (7.340-7.450)
[2019-08-24 21:29] LABS: PO2 59.7 mmHg (75.0-100.0)
[2019-08-24 21:45] LABS: ABSOLUTE BASOPHILS 0.1 thou/uL (0.0-0.2); ABSOLUTE EOSINOPHILS 0.2 thou/uL (0.0-0.7); ABSOLUTE LYMPHOCYTES 0.6 thou/uL (0.8-5.3); ABSOLUTE NEUTROPHILS 7.9 thou/uL (1.6-8.1); BASOPHILS 0.8 %; EOSINOPHILS 2.2 %; HEMATOCRIT 49.4 % (42.0-52.0); HEMOGLOBIN 16.7 gm/dL (14.0-18.0); LYMPHOCYTES 6.5 %; MCH 32.2 pg (26.0-34.0); MCHC 33.7 g/dL (28.0-37.0); MCV 95.4 fL (80.0-100.0); MONOCYTES 9.7 %; MPV 8.8 fl. (7.2-11.1); NUCLEATED RBCS 0 /100WBC; PLATELET COUNT* 262 thou/uL (150-400); POLYS 80.8 %; RBC 5.18 mil/uL (4.50-6.00); RDW-CV 14.2 % (10.5-14.5); WBC 9.8 thou/uL (4.0-11.0)
[2019-08-24 21:51] LABS: CALCIUM 8.8 mg/dL (8.5-10.1); CREATININE 1.8 mg/dL (0.6-1.3); POTASSIUM 4.3 mmol/L (3.5-5.1)
[2019-08-24 21:55] LABS: ALBUMIN 2.8 g/dL (3.4-5.0); MAGNESIUM 2.1 mg/dL (1.8-2.4); TOTAL BILIRUBIN 0.4 mg/dL (<0.1-1.0); TOTAL PROTEIN 7.6 g/dL (6.4-8.2)
[2019-08-24 23:25] LABS: INFLUENZA A ANTIGEN Negative (Negative); INFLUENZA B ANTIGEN Negative (Negative)
[2019-08-24 23:27] LABS: URINE BILIRUBIN NEGATIVE (Negative); URINE BLOOD NEGATIVE (Negative); URINE CLARITY CLEAR; URINE COLOR YELLOW; URINE GLUCOSE-RANDOM NEGATIVE (Negative); URINE KETONES NEGATIVE (Negative); URINE LEUKOCYTES-REFLEX NEGATIVE (Negative); URINE NITRITE-REFLEX NEGATIVE (Negative); URINE PROTEIN 2+ (Negative); URINE SPECIFIC GRAVITY >= 1.030 (1.005-1.030)
[2019-08-25 00:25] LABS: SQUAMOUS NONE SEEN /LPF (0-3)
[2019-08-25 00:26] LABS: BACTERIA-REFLEX None Seen /HPF (None Seen); CRYSTALS None Seen /LPF (None Seen); HYALINE CASTS 0-3 Few /LPF (None Seen); URINE RBC None Seen /HPF (0-2); URINE WBC-REFLEX 0-5 Rare /HPF (0-5)
[2019-08-25 01:00] VITALS: BP 125/63
[2019-08-25 01:11] VITALS: BP 152/69
--- NOTE | 2019-08-25 02:01 | NUR ---
PT ADMITTED TO ROOM 201 FROM ED VIA CART. PT CAME TO ED FROM HOME VIA EMS, AGITATED AND UNCOOPERATIVE. PT BLOOD GLUCOSE AT TRIAGE 95.UPON ADMISSION 156. PT EATING AND TOLERATING PO. ALERT AND ORIENTED X2. FORGETFUL AND CONFUSED. MED HX DM2 AND TAKING DOXYCYCLINE FOR RASH. PT IS POOR HISTORIAN, LEFT PRIOR TO ADMISSION.O2 SAT 94% ON 2L NC. SR ON MONITOR.NS AT 100. PT EDUCATED TO CALL LIGHT,FALL PRECAUTIONS, TREATMENTS AND PLAN OF CARE. FALL PRECAUTIONS IN PLACE. CALL LIGHT IN REACH.
--- NOTE | 2019-08-25 05:48 | NUR ---
PT IS REFUSING BARBECUE COOK.
[2019-08-25 08:00] VITALS: BP 155/67
[2019-08-25 08:45] LABS: CHOLESTEROL 158 mg/dL (<200); HDL CHOLESTEROL 29 mg/dL (>40); LDL CHOLESTEROL 107 mg/dL (<100); TC:HDL 5.4 Ratio (Not establshd); TRIGLYCERIDE 110 mg/dL (<150); VLDL 22 mg/dL (<40)
[2019-08-25 08:46] LABS: SERUM ASSESSMENT Clear
[2019-08-25 11:15] VITALS: BP 136/58
--- NOTE | 2019-08-25 14:53 | NUR ---
CM spoke with family in room. Pt resides at home with . Pt has a walker and scooter that he uses. assists with ADLs and completes IADLs. Pt is current with [facility]. No hx of SNF. CM following for dispo.
--- NOTE | 2019-08-25 16:30 | 2DMMODE ---
[place] [address] 2 D/M-MODE ECHOCARDIOGRAM Name: RYAN ENCISO Room: [address] [facility]#: [id number] Admission: 08/24/19 Attend Phys: Jaquelin Peck MD Discharge: Date of : 30 Date of Service: 08/25/19 1629 Report #: [id number] THIS REPORT FOR: //name// APPROVED REPORT Study performed: 08/25/2019 10:56:50 EXAM: Comprehensive 2D, Doppler, and color-flow Echocardiogram Patient Location: In-Patient Room #: 201 Status: routine BSA: 1.97 HR: 74 bpm BP: 155/67 mmHg Rhythm: NSR Other Information Study Quality: Good Indications CVA/TIA Echo Enhancing Agent Indication: Rule out Shunt Agent(s) / Amount(s) Used: Agitated Saline 10 cc 2D Dimensions IVSd: 10.57 (7-11mm) LVOT Diam: 18.52 (18-24mm) LVDd: 36.23 mm PWd: 12.35 (7-11mm) Ascending Ao: 33.60 (22-36mm) LVDs: 20.87 (25-40mm) Aortic Root: 34.48 mm Volumes Left Atrial Volume (Systole) LA ESV Index: 25.40 mL/m2 Aortic Valve AoV Peak Gonzalez.: 1.92 m/s AO Peak Gr.: 14.78 mmHg LVOT Max P.90 mmHg AO Mean Gr.: 8.39 mmHg LVOT Mean P.46 mmHg LVOT Max V: 0.99 m/s AO V2 VTI: 41.94 cm LVOT Mean V: 0.77 m/s SAM (VTI): 1.25 cm2 LVOT V1 VTI: 19.50 [place] [address] 2 D/M-MODE ECHOCARDIOGRAM Name: RYAN ENCISO Room: [address] IN .R.#: [id number] Admission: 08/24/19 Attend Phys: Jaquelin Peck MD Discharge: Date of : 30 Date of Service: 08/25/19 1629 Report #: [id number] Mitral Valve E/A Ratio: 0.53 MV Decel. Time: 396.06 ms MV E Max Gonzalez.: 0.65 m/s MV PHT: 114.86 ms MVA (PHT): 1.92 cm2 TDI E/Lateral E': 8.13 E/Medial E': 10.83 Medial E' Gonzalez.: 0.06 m/s Lateral E' Gonzalez.: 0.08 m/s Pulmonary Valve PV Peak Gonzalez.: 1.03 m/s PV Peak Gr.: 4.24 mmHg Tricuspid Valve RAP Estimate: 5.00 mmHg TR Peak Gr.: 31.34 mmHg RVSP: 36.00 mmHg PA Pressure: 36.00 mmHg Left Ventricle The left ventricle is normal size. There is normal LV segmental wall motion. There is normal left ventricular wall thickness. Left ventricular systolic function is normal. LVEF is 60-65%. Grade I - abnormal relaxation pattern. Right Ventricle The right ventricle is normal size. The right ventricular systolic function is normal. Atria The left atrium size is normal. Interatrial septum is intact without evidence of ASD or PFO. The right atrium size is normal. Aortic Valve Moderate aortic valve sclerosis. No aortic regurgitation is present. Moderate aortic stenosis. Mitral Valve There is mitral annular calcification. Trace mitral regurgitation. Mild mitral stenosis. Tricuspid Valve The tricuspid valve is normal in structure. Trace tricuspid regurgitation. Mild pulmonary [place] [address] 2 D/M-MODE ECHOCARDIOGRAM Name: RYAN ENCISO Room: [address] [facility]#: [id number] Admission: 08/24/19 Attend Phys: Jaquelin Peck MD Discharge: Date of : 30 Date of Service: 08/25/19 1629 Report #: [id number] Pulmonic Valve The pulmonary valve is normal in structure. There is no pulmonic valvular regurgitation. Great Vessels The aortic root is normal in size. IVC is not well visualized. Pericardium There is no pericardial effusion. <Conclusion> The left ventricle is normal size. There is normal left ventricular wall thickness. Left ventricular systolic function is normal. LVEF is 60-65%. Grade I - abnormal relaxation pattern. Interatrial septum is intact without evidence of ASD or PFO. Moderate aortic valve sclerosis. Moderate aortic stenosis. There is mitral annular calcification. Trace mitral regurgitation. Mild mitral stenosis. Trace tricuspid regurgitation. Mild pulmonary hypertension. <ELECTRONICALLY SIGNED> By: Compa Ma MD, FACC 08/25/19 1629 162 162 Compa Ma MD, FACC /INF
--- NOTE | 2019-08-25 16:56 | EKG ---
[place] [address] ELECTROCARDIOGRAM REPORT Name: RYAN ENCISO Room: [address] ADM IN M.R.#: [id number] Admission: 08/24/19 Attend Phys: Jaquelin Peck MD Discharge: Date of : 30 Report #: [id number] THIS REPORT FOR: //name// [facility] ED Test Date: 2019-08-24 Test Time: 20:37:00 Pat Name: RYAN ENCISO Department: Room: [address] Gender: M [employer]: [place] : 1930 Requested By: Nan Serrato Order Number: [id number] Montse MD: Compa Ma Measurements Intervals [place] Rate: 82 P: 42 NM: 60 QRS: 26 QRSD: 85 T: 211 QT: 374 QTc: 437 Interpretive Statements Sinus rhythm Short NM interval Borderline low voltage, extremity leads Nonspecific T abnormalities, diffuse leads Baseline wander in lead(s) V6 Compared to ECG 06/09/2018 12:28:51 Short NM interval now present T-wave abnormality now present Electronically Signed On 08-25-2019 16:56:26 [employer] INSTALLER HELPER by Compa Ma [email or web address] <ELECTRONICALLY SIGNED> By: Compa Ma MD, FACC 08/25/19 1656 36 36 Compa Ma MD, FAC /EPI
[2019-08-25 17:15] VITALS: BP 110/56
--- NOTE | 2019-08-25 18:30 | NUR ---
ASSUMED PT CARE AT 0730, FULL ASSESMENT DONE CHARTED. PT A/O X3, IS FORGETFUL, ABLE TO ANSWER MOST OF THE QUESTIONS FOR ME. PT DENIES PAIN, VSS, IS ON 2L O2, SAT WAS 90% ON RA. PT ASSISTED WITH MEALS, TURNED Q2 HRS. WOUND CARE CONSULT PLACED, PT HAS MULTIPLE SCABS AND SCARS TO ARMS AND LEGS. LEFT FOOT RED/WARM. PTS AND SON UPDATED ON PLAN OF CARE.
[2019-08-25 20:00] VITALS: BP 135/59
--- NOTE | 2019-08-25 20:00 | NUR ---
UPON PT ASSESSMENT PERIPHERAL IV WAS LEAKING AND UPON FURTHER ASSESSMENT IT COULD NOT BE SALVAGED. WHEN IV ACCESS WAS ACQUIRED ON LEFT WRIST PT GRABBED HAND AND PULLED IV OUT STATING NOT TO DO THAT AGAIN. 2 ATTEMPTS AT CONSENT WERE UNSUCCESSFUL.WILL TRY A THIRD CONSENT LATER. CALL LIGHT WITHIN REACH
[2019-08-26] VITALS: BP 155/75
--- NOTE | 2019-08-26 02:15 | NUR ---
IV ACCESS OBTAINED ,FLUIDS RESTARTED, VANCOMYCIN INFUSING.
[2019-08-26 04:00] VITALS: BP 142/73
[2019-08-26 05:06] LABS: HEMATOCRIT 43.3 % (42.0-52.0); MCH 31.8 pg (26.0-34.0); MCHC 33.2 g/dL (28.0-37.0); MCV 95.9 fL (80.0-100.0); RBC 4.52 mil/uL (4.50-6.00); RDW-CV 13.6 % (10.5-14.5); WBC 7.8 thou/uL (4.0-11.0)
[2019-08-26 05:13] LABS: HEMOGLOBIN 14.4 gm/dL (14.0-18.0)
--- NOTE | 2019-08-26 05:13 | NUR ---
PT IS CALM AND RESTING COMFORTABLE AT THIS TIME ON 2L O2 NC. SR ON MONITOR. NO OTHER COMPLAINT T/O SHIFT. PT PROGRESSING TOWARDS GOALS. CALL [facility] IN [place]
[2019-08-26 05:26] LABS: ALBUMIN 2.4 g/dL (3.4-5.0); CALCIUM 8.5 mg/dL (8.5-10.1); CREATININE 1.4 mg/dL (0.6-1.3); MAGNESIUM 1.9 mg/dL (1.8-2.4); POTASSIUM 4.7 mmol/L (3.5-5.1); TOTAL BILIRUBIN 0.4 mg/dL (<0.1-1.0); TOTAL PROTEIN 6.4 g/dL (6.4-8.2)
[2019-08-26 08:00] VITALS: BP 162/74
[2019-08-26 12:08] VITALS: BP 144/66
--- NOTE | 2019-08-26 15:38 | NUR ---
WOUND CARE NOTE: CONSULT RECEIVED FOR SKIN ABRASIONS, BLISTERS L. FOOT PATIENT PRESENTS WITH MULTIPLE STABLE SCABS TO LOWER EXTREMITIES. LEAVE OPEN TO AIR. NOTIFY WOUND RN IF ANY S/S OF INFECTION. THESE ARE MAINLY PRESENT OVER HIS RIGHT LATERAL THIGH. LEFT DORSAL ASPECT OF FOOT, SEVERAL WHITE RAISED SCAR TISSUE AREAS. STABLE. RIGHT PLANTAR SURFACE OF HIS FOOT AT NEAR THE 5TH METATARSAL HEAD PRESENTS WITH AN INTACT SEROUS FILLED BLISTER. BELIEVE TO BE A STAGE 2 PRESSURE ULCER MEASURING 0.7X1.6. UNABLE TO PALPATE PEDAL PULSES, THESE WERE FOUND WITH DOPPLER. HEELS ARE BOGGY, RED, BLANCHABLE. TOENAILS ARE THICKENED, YELLOW. LEFT 4TH FINGER: INTACT SEROSANGUINEOUS FILLED BLISTER. AREA MEASURES 1.6X2.3. LEFT OPEN TO AIR, PATIENT HAD REMOVED DRESSING APPLIED BY HIS RN. RECOMMEND KEEP HEELS OFF BED ENSURE PATIENT'S FEET ARE NOT SITTING ON THE FOOT BOARD ENCOURAGE GOOD NUTRTION/HYDRATION MAY APPLY VASELINE GAUZE THEN ROLL GAUZE OVER BLISTER TO FINGER IF NEEDED
--- NOTE | 2019-08-26 18:30 | NUR ---
assumed pt care at 0730, full assesment done as charted. pt a/o x2-3, forgetful but pleasant. pt denies pain, vss, sr onthe monitor, changed to m/s this afternoon. pt has poor apitite, encouraged to eat, meals adjusted for him. pt incontinant at times, does use call light some of the time. turned q2 hr, wound care done. fall precautions in place. pt transfered to room 104 at approx 1800, report given to Clary ROMAN
--- NOTE | 2019-08-26 18:40 | NUR ---
PATIENT ARRIVED TO UNIT AT 1800, TRANSFERRED FROM TELEMETRY BED 201. REPORT TAKEN FROM ABEL VENTURA. REVIEWED CHARTING AND ORIENTED PATIENT TO ROOM AND UNIT. FALL PRECAUTIONS IN PLACE. CALL LIGHT PLACED IN REACH. PATIENT ASSISTED WITH DINNER BUT ONLY ATE APPROX 10%. WILL CONTINUE WITH PLAN OF CARE.
[2019-08-26 19:34] VITALS: BP 148/59
[2019-08-27 04:23] LABS: CALCIUM 8.7 mg/dL (8.5-10.1); CREATININE 1.5 mg/dL (0.6-1.3); MAGNESIUM 1.9 mg/dL (1.8-2.4); POTASSIUM 4.7 mmol/L (3.5-5.1)
[2019-08-27 07:25] VITALS: BP 124/67
--- NOTE | 2019-08-27 07:25 | NUR ---
ASSUMED CARE OF PT 08/26/19 AT APPROX 1930, PT A&OX4 THROUGHOUT SHIFT, VSS, PT TURNED Q2, FEET ELEVATED OFF BED, NO PAIN REPORTED, ASSESSMENTS AND HOURLY ROUNDINGS COMPLETED, REPORT GIVEN AND CARE OF PT TRANSFERED TO DAY SHIFT NURSE APPROX 0715.
[2019-08-27] MEDS ORDERED: ADULT LOW DOSE81 MG PO (08:22)
[2019-08-27] MEDS ORDERED: VITAMIN B-121000 MC2 SUBLING (08:22)
[2019-08-27] MEDS ORDERED: KEFLEX500 M1 PO (08:22)
[2019-08-27] MEDS ORDERED: FIASP 100100 UNIT/1 SUBQ (08:22)
[2019-08-27] MEDS ORDERED: NORVASC5 MG PO (08:23)
[2019-08-27 09:31] VITALS: BP 124/67
--- NOTE | 2019-08-27 10:30 | NUR ---
DC ORDERS NOTED WITH HH. MET WITH PT, AND SON/DENISSE. PT KEPT HIS HEAD COVERED WITH SHEET THE WHOLE TIME. PT HAS VISITING DR [facility], NOT HH. AFTER FURTHER DISCUSSION WITH , HAS HAD HH WITH [facility] IN THE PAST AND WOULD LIKE TO USE THEM AGAIN. CALLED [facility] LIASON AND GAVE HER ORDERS. SHE VISITED WITH PT/FAMILY. AWAITING THERAPY TO WORK WITH PT ON TRANSFER PRIOR TO DC. ALSO GAVE INFO ON PRIVATE DUTY PER REQUEST. NO OTHER NEEDS ID'D
[2019-08-27 11:12] VITALS: BP 124/67
[2019-08-27 11:53] VITALS: BP 124/67
--- NOTE | 2019-08-27 13:36 | CON ---
[address] [address] CONSULTATION Name: RYAN ENCISO Room: [address] IN .R.#: [id number] Admission: 08/24/19 Attend Phys: Jaquelin Peck MD Discharge: Date of : 30 Report #: [id number] THIS REPORT FOR: //name// CC: Ryan Tinajero Jaquelin Peck DATE OF SERVICE: 08/25/2019 HISTORY OF PRESENT ILLNESS: This is an 88-year-old male patient who does not provide any good history. He is not happy here and his first sentence was "I wanted to get out of here." So, he did not provide any history. The records indicate that he had a relatively recent onset of confusion. It is tough to say what his baseline mental status is because no family member is here. When I asked him if he has any prior history of strokes, he does not answer. REVIEW OF SYSTEMS: Indicate that this patient has a history of diabetes. He has a history of renal failure as I understand from the records. He denies any clinical stroke. He would not give me any further history. I attempted to do the 14-point review of system, both clinically and from the record and that is all I can tell. He apparently does have a history of hypertension. PAST MEDICAL HISTORY: Negative for stroke, but history is not reliable. His MRI clearly demonstrated old stroke. FAMILY HISTORY: Unremarkable. SOCIAL HISTORY: He says he does not drink any alcohol. PHYSICAL EXAMINATION: Indicates he is alert, poorly cooperative, but he knows what month and what day today is and what hospital he is in. His speech looks intact. Cranial nerve examination 2-12 does not appear to be showing any abnormality except his vision is blurry. I do not know what pattern follow. I asked him to cooperate at least for that, but he did not do that. He moves all four extremities, and refused to cooperate with the strength, sensation, reflexes, or tone. He did not cooperate with the fundus examination. He does not have any meningeal sign. Cardiac and respiratory examinations appear noncontributory. His blood pressure is 136/58, respiration is 20, pulse is 67, and temperature is 98. LABORATORY AND DIAGNOSTIC DATA: His white count is 9.8. He did have a CT scan and MRI and that demonstrated old changes, but no new changes. 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 He has evidence of multiple strokes in the past, so he may be predisposed to dementia. We need to find the family to get a good [place] [address] CONSULTATION Name: ZARIARYAN Beatriz Room: [address] IN [facility].#: [id number] Admission: 08/24/19 Attend Phys: Jaquelin Peck MD Discharge: Date of : 30 Report #: [id number] I will get an EEG done in this patient. His B12 is somewhat on the lower side. We may supplement that, but main management is going to be management of the systemic infections, especially cellulitis he appeared to be having. Thank you very much for this referral. <ELECTRONICALLY SIGNED> By: Theo Rodriguez MD 08/27/19 1336 1602 [id number] Rodriguez MD /nt
--- NOTE | 2019-08-27 14:31 | NUR ---
RECEIVED CALL THAT THERAPY REC: SNF. PER ISABEL/[facility], THEY ARE INTERESTED IN [facility]. CALLED AND FAXED REFERRAL TO [facility]. SHE WILL SUBMIT FOR AUTH BUT STATED IT COULD BE FRIDAY BEFORE THEY HEAR BACK. UPDATED NURSE AND DR. MCCRARY [phone]
[2019-08-27 16:30] VITALS: BP 127/64
--- NOTE | 2019-08-27 17:21 | NUR ---
PT REMAINED ALERT TO SELF AND SITUATION AND FIRGETFUL. PT WORKED WITH THERAPY AND WAS UNABLE TO TRANSFER SAFELY. FALL RISK PRECAUITIONS IN PLACE. HOURLY ROUNDING COMPLETED. WILL CONTINUE TO MONITOR.
[2019-08-27 20:02] VITALS: BP 130/82
--- NOTE | 2019-08-28 04:50 | NUR ---
ASSUMED CARE OF PT 08/27/19 AT APPROX 1930, PT A&OX3, PT ON ROOM AIR, FEET ELEVATED OFF BED, PT SLEPT WELL, NO S/SX OF DISCOMFORT, VSS, WILL CONTINUE TO MONITOR.
[2019-08-28 07:20] VITALS: BP 128/58
--- NOTE | 2019-08-28 16:52 | NUR ---
PT UP TO CHAIR FOR MEALS, PT RESTING IN BED AND CHAIR. FALL RISK PRECAUTIONS IN PLACE. HOURLY ROUNDING COMPLETED. WILL CONTINUE TO MONITOR.
[2019-08-28 20:40] VITALS: BP 125/83
--- NOTE | 2019-08-29 03:06 | NUR ---
PATIENT HAS REMAINED ALERT AND ORIENTED X 2-3 WITH FORGETFULNESS. TURNED Q2H. HEELS ELEVATED UP OFF OF BED. COUGH NOTED AT TIMES. MEDS PER ORDER. VITAL SIGNS STABLE. NO NEW NEEDS THIS SHIFT. CONTINUE TO MONITOR.
--- NOTE | 2019-08-29 06:13 | NUR ---
NO CHANGES FROM PREVIOUS END OF SHIFT ENTRY.
[2019-08-29 07:15] VITALS: BP 127/76
[2019-08-29 16:00] VITALS: BP 104/77
--- NOTE | 2019-08-29 17:02 | NUR ---
pt remained alert. pt up to chair for meals, pt transferring improved slightly at the end of the shift. q2 turns completed. breathing treatments ordered for wheezing noted, physician aware. attempted incentive spirometer teaching, pt unable to complete properly. fall risk precautions in place. hourly rounding completed. will continue to monitor.
[2019-08-29 20:30] VITALS: BP 138/76
--- NOTE | 2019-08-30 03:27 | NUR ---
PATIENT ALERT AND ORIENTED X 3-4 WITH FORGETFULNESS. DOES NOT USE CALL LIGHT BUT CALLS OUT FOR HELP TO USE URINAL. SOMEWHAT IMPROVED INTERACTION/CONVERSATION. OCCASSIONAL COUGH. HEALING SKIN LESIONS ARMS AND RIGHT LEG. RIGHT FOOT PLANTER BLISTER HAS ABSORBED AND DRY. AFEBRILE. ORAL ANTIBIOTICS PER ORDER. ASSISTS WITH TURNS. UP JUST PRIOR TO SHIFT CHANGE AND HAS NOT BEEN OUT OF BED THIS SHIFT. CONTINUE TO MONITOR.
[2019-08-30 08:15] VITALS: BP 118/58
--- NOTE | 2019-08-30 13:45 | NUR ---
LEFT FOR [facility] THIS AM ABOUT 10:00. SHE RETURNED MY CALL AND SAID THEY ARE WAITING ON INS.AUTH. THEY CAN ACCEPT HIM OTHERWISE. SHE HOPES TO GET AUTH BY LATER THIS AFTERNOON.
--- NOTE | 2019-08-30 16:07 | NUR ---
ASSUMED CARE AT 0930. ALERT TO SELF AND FAMILY. HX OF AMS AND HYPOGLYCEMIA. SITTING UP IN RECLINER AT BEDSIDE WITH BLES ELEVATED. HAD LARGE SOFT BM IN BSC AFTER BREAKFAST MEAL. APPETITE GOOD ASSISTS WITH FEEDING HIM. TRANSFERS WITH 1 ASSIST G BELT WALKER AND MUCH CUEING MOVES VERY SLOWLY. P.T. WORKED WITH HIM TODAY TO GYM PER RECLINER CHAIR. USES CALL LIGHT APPROPRIATELY FOR ASSIST.
--- NOTE | 2019-08-30 16:15 | NUR ---
SPOKE WITH PT'S . PT.ASLEEP IN CHAIR. TOLD HER I HAVEN'T HEARD YET FROM [facility] ABOUT ISURANCE AUTH FOR PT.TO GO TO SNF. TOLD HER THEY CAN ACCEPT HIM MEDICALLY BUT WE ARE JUST WAITING ON INSURANCE AUTH.
--- NOTE | 2019-08-30 19:08 | NUR ---
PT. VOIDS PER URINAL WITH ASSIST. SITTING UP IN RECLINER AT BEDSIDE BLES ELEVATED.
[2019-08-30 19:35] VITALS: BP 137/73
--- NOTE | 2019-08-31 04:15 | NUR ---
PATIENT HAS REMAINED ALERT AND ORIENTED X 2-3, FORGETFUL. CALLS OUT FOR URINAL. ASSISTED WITH TURNS Q2H. COUGH WITH HS MEDS. WHEEZY FOR SHORT TIME THERE AFTER. RT TX PROVIDED. O2 SAT 89%. O2 APPLIED AT 2L/MIN OVERNIGHT. WHEEZING RESOLVED. UP FROM CHAIR WITH MAX ASSIST OF ONE, GAIT BELT, WALKER AND INSTRUCTION. VITAL SIGNS STABLE. CONTINUE TO MONITOR.
[2019-08-31 07:20] VITALS: BP 130/75
[2019-08-31 15:56] VITALS: BP 111/53
--- NOTE | 2019-08-31 17:34 | NUR ---
PT REMAINED ALERT. PT UP TO CHAIR FOR MEALS. AWAITING INSURANCE AUTH. FALL RISK PRECAUTIONS IN PLACE. HOURLY ROUNDING COMPLETED. WILL CONTINUE TO MONITOR.
[2019-08-31 19:43] VITALS: BP 126/83
--- NOTE | 2019-09-01 05:20 | NUR ---
ENCOURAGED FLUID INTAKE. HE TOOK ALL MEDS BY MOUTH WITHOUT ISSUE. Q2 TURN. SLEPT WELL THROUGH THE SHIFT. NO WORSENING OF CONDITION. PLAN IS TO AWAIT PLACEMENT UPON INSURANCE APPROVAL. WILL CONTINUE TO FOLLOW PLAN OF CARE.
[2019-09-01 07:10] VITALS: BP 121/65
--- NOTE | 2019-09-01 09:23 | NUR ---
MESSAGE FROM [facility], STATING INSURANCE REQUESTING UPDATED PT/OT NOTES ON PT. FAXED ASSESSMENTS FROM PT/OT FROM 08/31 TO [facility]. SHE WILL FORWARD ON TO INSURANCE.
[2019-09-01 12:34] VITALS: BP 124/67
[2019-09-01 14:52] VITALS: BP 124/67
[2019-09-02 12:08] LABS: URINE CORTISONE 11 ug/L (Undefined); URINE FREE CORTISOL 9 ug/24 hr (3-49)
== END 2019-09-01 14:53 | DRG 91 ==
LOC: M.ERS 20:24 → M.TBA-ER 23:58 → M.2W 23:58 → M.ORTHSURG 23:58 → M.2W 08-25 01:11 → M.ORTHSURG 08-26 17:54
PROVIDERS: Internal Medicine; Personal Emergency Response Attendant; ADMIT Family Medicine
DX: G92 Toxic encephalopathy (principal); E43 Unspecified severe protein-calorie malnutrition; L03.116 Cellulitis of left lower limb; I50.30 Unspecified diastolic (congestive) heart failure; N17.9 Acute kidney failure, unspecified; I13.0 Hypertensive heart and chronic kidney disease with heart failure and stage 1 through stage 4 chronic kidney disease, or unspecified chronic kidney disease; F01.50 Vascular dementia, unspecified severity, without behavioral disturbance, psychotic disturbance, mood disturbance, and anxiety; E53.8 Deficiency of other specified B group vitamins; I34.2 Nonrheumatic mitral (valve) stenosis; E11.22 Type 2 diabetes mellitus with diabetic chronic kidney disease; I27.20 Pulmonary hypertension, unspecified; I35.0 Nonrheumatic aortic (valve) stenosis; N18.3 Chronic kidney disease, stage 3 (moderate); E11.65 Type 2 diabetes mellitus with hyperglycemia; R53.81 Other malaise; Z68.25 Body mass index [BMI] 25.0-25.9, adult; Z79.899 Other long term (current) drug therapy; Z23 Encounter for immunization; Z88.1 Allergy status to other antibiotic agents; Z88.0 Allergy status to penicillin; Z86.73 Personal history of transient ischemic attack (TIA), and cerebral infarction without residual deficits